=== PATIENT | female | born 1955 | race Caucasian/White ===

== ENCOUNTER 2024-04-12 12:38 | Emergency (ER) | payer OTHER ==
[~2024-04-12] VITALS: Ht 160 cm; Wt 58.0 kg
[2024-04-12 12:41] VITALS: O2SAT 100
[2024-04-12 13:33] LABS: EOSINOPHILS % 3.7 % (0.0-5.0); HEMATOCRIT. 34.6 % (36.0-48.0); HEMOGLOBIN. 11.5 g/dL (12.0-16.0); MEAN CORPUSCULAR HEMOGLOBIN 31.4 pg (28.0-32.0); MEAN CORPUSCULAR HGB CONC 33.4 g/dL (31.0-37.0); MEAN CORPUSCULAR VOLUME 94.1 fL (81.0-99.0); MEAN PLATELET VOLUME 8.1 fl (7.4-10.4); MONOCYTES % 5.1 % (2.0-8.0); NEUTROPHILS % 66.2 % (40.0-76.0); PLATELET 234 x1000/uL (130-400); RED BLOOD CELL COUNT 3.68 mill/uL (4.2-5.4); RED CELL DISTRIBUTION WIDTH 14.6 % (11.6-14.6); WHITE BLOOD COUNT 6.1 x1000/uL (4.5-11.0)
[2024-04-12 13:41] LABS: CHLORIDE 111 mEq/L (98-107); POTASSIUM 3.9 mEq/L (3.5-5.1); SODIUM 140 mEq/L (136-145)
[2024-04-12 13:42] LABS: CALCIUM 9.7 mg/dL (8.7-10.4); CARBON DIOXIDE 23 mEq/L (21-32)
[2024-04-12 13:46] LABS: CREATININE 0.9 mg/dL (0.6-1.0)
[2024-04-12 13:47] LABS: GLUCOSE 105 mg/dL (70-105); UREA NITROGEN BLOOD 19 mg/dL (9-23)
[2024-04-12 13:55] LABS: INR 0.9; PARTIAL THROMBOPLASTIN TIME < 21.0 sec (23.4-31.0); PROTHROMBIN TIME 10.5 sec (9.6-11.0)
[2024-04-12] MEDS: HYDROCODONE/ACETAMINOPHEN 5/325MG TABLET PO ONE ×2 (14:40→19:08)
[2024-04-12 18:19] VITALS: TEMP 37.00296; O2SAT 99
[2024-04-12 19:08] VITALS: BP 162/88; PULSE 78; RESP 16
[2024-04-12] MEDS: KETOROLAC 30MG/ML VIAL IV ONE (19:08)
== END 2024-04-12 19:14 | disposition short-term general hospital (02) ==
LOC: ER 12:38 → EDBEDREQTM 17:31 → EDBEDREQ 17:31 → ER 19:14
DX: S72.002A Fracture of unspecified part of neck of left femur, initial encounter for closed fracture (principal); W18.30XA Fall on same level, unspecified, initial encounter; Y93.89 Activity, other specified; Y92.89 Other specified places as the place of occurrence of the external cause; Y99.8 Other external cause status; E78.00 Pure hypercholesterolemia, unspecified; I10 Essential (primary) hypertension
CPT/HCPCS: 99285; 96374; 71045; 80048; 85025; 85610; 85730; 86850; 86900; 86901; 36415; 73502; 93005; J1885